=== PATIENT | male | born 1945 | race Caucasian/White ===

== ENCOUNTER 2024-04-14 13:00 | Observation (INO) ==
--- NOTE | 2024-04-14 13:38 | Emergency Department Note ---
Impression & Plan CHF (congestive heart failure), Hypertension ED Provider Note CHIEF COMPLAINT: Shortness of breath, nosebleeds HISTORY OF PRESENT ILLNESS: This 79 yo male patient with PMH of CHF presents to the emergency department with complaints of several nosebleed since this morning, high blood pressure and shortness of breath. The patient lives in [facility] and is in town visiting his son. He states over the last several weeks he has had increasing fatigue. He was switched from lasix to spironalactone several months ago. His SBP at PCP office within last 2 weeks was 134. They mention that they ate at [employer] last evening. REVIEW OF SYSTEMS: A review of systems was performed with positives and pertinent negatives listed in the history of present illness. 10 systems were reviewed and are otherwise negative. ALLERGIES: see below MEDICATIONS: see below PMH: see below SOCIAL HISTORY: see below DDx: CHF, ACS, dysrhythmia, COPD exac, HTN urgency renal failure among others. PHYSICAL EXAM: Vital signs reviewed. hypertensive. General: Chronically ill appearing 79 yo male, in no significant distress. flushed HEENT: No scleral icterus, PERRLA, neck supple. MMM. Cardiovascular: Regular rate and rhythm, no extra sounds. Pulmonary: Diminished BS but clear to auscultation bilaterally, increased WOB Abdomen: Soft, nontender, nondistended, positive bowel sounds. Musculoskeletal: Atraumatic, no peripheral edema. Neurologic: Patient awake alert and oriented x 3, speech is clear Skin: Warm, dry, no rash EMERGENCY DEPARTMENT COURSE/MDM: This patient was evaluated and appeared to be in no significant distress. IV access was obtained and laboratory work was drawn. Chest x-ray to my interpretation reveals cardiomegaly with no significant evidence of failure. EKG reveals a sinus rhythm. Patient is also noted to be hypertensive, tachycardic and requiring oxygen to maintain O2 saturations. He was given 40 mg of IV Lasix and did begin to diurese. His laboratory work reveals a BNP of 853, high-sensitivity troponin of 30. Hydralazine 10 mg IV was administered for hypertension and responded well. Case was discussed with the hospitalist service who will evaluate the patient for admission and further management. Patient and were informed of the findings and plan and agreed. MONITORING: An order for cardiac monitoring was placed and the patient is noted to be in a NSR at 65 beats per minute. RADIOLOGY: CXR to my interpretation reveals cardiomegaly, COPD changes, no failure or PNA. EKG:to my interpretation reveals a NSR at 65 bpm, normal ST segments. No PVC, no PAC, QTc 409. DISPOSITION: admission Past Med/Surg History Problem List (Updated 04/17/24 @ 05:20 by Qi Galaviz MD) CHF exacerbation Chest pain Shortness of breath Anxiety Sinus infection Epistaxis Hypertension (Acute) CHF (congestive heart failure) (Acute) Social History (Updated 04/14/24 @ 16:18 by Kelly Laguna PA-C) Smoking Status: Former smoker Age Quit Using Tobacco: 69; Hx Alcohol Use: Yes Alcohol type: beer Hx Substance Use: No Preferred Language: Kosovan Communication Ability: Effective Current Living Situation: Spouse Feels Safe at Home: Yes Assistive Devices: Glasses Allergies Allergies Allergy/AdvReac Type Severity Reaction Status Date / Time No Known Allergies Allergy Unverified 04/14/24 14:54 Home Meds Home Medications Medication Instructions Recorded Confirmed aspirin 81 mg tablet,delayed 81 mg PO DAILY 04/14/24 04/14/24 release atorvastatin 40 mg tablet 40 mg PO HS 04/14/24 04/14/24 cefuroxime axetil 500 mg tablet 500 mg PO BID 04/14/24 04/14/24 citalopram 20 mg tablet 20 mg PO DAILY 04/14/24 04/14/24 losartan 100 1 tab PO DAILY 04/14/24 04/14/24 mg-hydrochlorothiazide 25 mg tablet metoprolol succinate 50 mg 50 mg PO DAILY 04/14/24 04/14/24 tablet,extended release 24 hr prednisone 20 mg tablet See Rx Instructions .Route .COMPLEX 04/14/24 04/14/24 spironolactone 25 mg tablet 25 mg PO Q OTHER DAY 04/14/24 04/14/24 Results & Data (ED) Vital Signs Vital Signs - 24 hr 04/14/24 13:04 04/14/24 13:22 04/14/24 13:33 Temperature 36.4 C L Temperature Source Temporal Artery Scan Pulse Rate 60 68 Pulse Rate from SpO2 Sensor 67 Pulse Rhythm Respiratory Rate 22 22 Respiratory Effort / Characteristics Non-Labored Spontaneous SOB on Exertion Respiratory Depth Normal Respiratory Pattern Regular Blood Pressure 193/92 H 216/98 H Blood Pressure Mean 125 137 Pulse Oximetry 94 92 Oxygen Delivery Method Room Air Room Air Sepsis Recent Fever Within 48 Hours No Sepsis New/Unexplained Change in Mental Status No Sepsis Action Taken by Nursing No Action Required 04/14/24 13:39 04/14/24 13:39 04/14/24 13:39 Temperature Temperature Source Pulse Rate 65 Pulse Rate from SpO2 Sensor Pulse Rhythm Regular Respiratory Rate 20 Respiratory Effort / Characteristics Non-Labored Spontaneous Respiratory Depth Normal Respiratory Pattern Blood Pressure Blood Pressure Mean Pulse Oximetry 92 92 Oxygen Delivery Method Room Air Room Air Sepsis Recent Fever Within 48 Hours Sepsis New/Unexplained Change in Mental Status Sepsis Action Taken by Nursing 04/14/24 13:45 04/14/24 13:48 04/14/24 14:02 Temperature Temperature Source Pulse Rate 59 L 67 Pulse Rate from SpO2 Sensor 58 L Pulse Rhythm Respiratory Rate 24 Respiratory Effort / Characteristics Respiratory Depth Respiratory Pattern Blood Pressure 195/111 H Blood Pressure Mean 122 Pulse Oximetry 91 Oxygen Delivery Method Room Air Sepsis Recent Fever Within 48 Hours Sepsis New/Unexplained Change in Mental Status Sepsis Action Taken by [facility] Medications Current Medication List: was personally reviewed by me Laboratory Data Attestation: I reviewed the patient's lab results. 04/15/24 06:32 04/15/24 06:32 Lab Results 04/14/24 04/14/24 04/14/24 Range/Units 13:47 13:57 15:55 WBC 11.79 H (4.8-10.8) K/ul RBC 6.19 H (4.70-6.10) M/uL Hgb 18.3 H (14.0-18.0) g/dl Hct 53.2 H (42.0-52.0) % MCV 85.9 (80.0-100.0) fL MCH 29.6 (25.0-34.0) pg MCHC 34.4 (32.0-36.0) g/dL RDW Std Deviation 45.0 (36.4-46.3) fL RDW Coeff of Paco 14.4 (11.5-14.5) % Plt Count 204 (130-400) K/uL MPV 11.1 (9.4-12.4) fL Immature Gran % (Auto) 1.1 % Neut % (Auto) 84.3 % Lymph % (Auto) 5.5 % Terrell % (Auto) 6.2 % Eos % (Auto) 2.8 % Baso % (Auto) 0.1 % Neut # (Auto) 9.94 H (1.40-6.50) K/uL Lymph # (Auto) 0.65 L (1.20-3.40) K/uL Terrell # (Auto) 0.73 H (0.11-0.59) K/uL Eos # (Auto) 0.33 (0.00-0.50) K/uL Baso # (Auto) 0.01 (0.00-0.20) K/uL Immature Gran # (Auto) 0.13 (0.01-0.20) K/uL Sodium 128 L (136-145) mmol/L Potassium 4.7 (3.5-5.1) mmol/L Chloride 92 L (98-107) mmol/L Carbon Dioxide 31 (21-32) mmol/L Anion Gap 5 (3-11) BUN 39 H (6-23) mg/dl Creatinine 1.32 (0.6-1.4) mg/dl Est Cr Clr Drug Dosing 47.9 ml/min eGFR 54.19 BUN/Creatinine Ratio 29.5 H (10-20) Glucose 99 (70-99(Fasting)) mg/dl Calcium 11.0 H (8.6-10.3) mg/dl Magnesium 1.7 (1.7-2.4) mg/dl Total Bilirubin 2.5 H (0.2-1.0) mg/dl AST 35 (13-39) U/L ALT 36 (7-52) U/L Alkaline Phosphatase 52 (34-104) U/L Troponin I High Sens 30.1 H 26.0 H (0-20) pg/ml B-Natriuretic Peptide 853 H (0-100) pg/ml Total Protein 7.9 (6.0-8.3) gm/dl Albumin 4.8 (3.4-5.0) gm/dl Globulin 3.1 (2.5-4.0) gm/dl Albumin/Globulin Ratio 1.5 (0.9-2) Lipase 45 (11-82) U/L Procalcitonin 0.03 (0-0.5) ng/ml TSH 4.741 H (0.300-4.500) uIu/ml Free T4 0.99 (0.61-1.60) ng/dl Administered Medications Discontinued Medications Albuterol (Albut/Ipratrop 3mg/0.5mg Neb 3 Ml Vial) 3 ml NEB Q6R [facility]; Protocol Stop: 05/14/24 18:59 Last Admin: 04/16/24 07:02 Dose: 3 ml Documented By: Admin: 04/16/24 01:42 Dose: Not Given Documented By: Admin: 04/15/24 19:58 Dose: Not Given Documented By: Admin: 04/15/24 12:52 Dose: 3 ml Documented By: Admin: 04/15/24 07:31 Dose: 3 ml Documented By: Admin: 04/15/24 02:47 Dose: 3 ml Documented By: Admin: 04/14/24 20:15 Dose: 3 ml Documented By: MIKE Aspirin (Aspirin 81 Mg Ectab) 81 mg PO DAILY [facility] Stop: 05/15/24 08:59 Last Admin: 04/16/24 07:26 Dose: 81 mg Documented By: [facility] Admin: 04/15/24 09:23 Dose: 81 mg Documented By: JUSTIN Atorvastatin Calcium (Atorvastatin 40 Mg Tab) 40 mg PO HS [facility] Stop: 05/14/24 20:59 Last Admin: 04/15/24 20:38 Dose: 40 mg Documented By: rn mds: 04/14/24 22:55 Dose: 40 mg Documented By: [facility] Cefuroxime Axetil (Cefuroxime Axetil 500 Mg Tab) 500 mg PO BIDM [facility] Stop: 04/25/24 16:59 Last Admin: 04/16/24 07:27 Dose: 500 mg Documented By: [facility] Admin: 04/15/24 17:54 Dose: 500 mg Documented By: [facility] Citalopram Hydrobromide (Citalopram 20 Mg Tab) 20 mg PO DAILY [facility] Stop: 05/15/24 08:59 Last Admin: 04/16/24 07:26 Dose: 20 mg Documented By: [facility] Admin: 04/15/24 09:23 Dose: 20 mg Documented By: [facility] Cyanocobalamin (Cyanocobalamin (B-12) 500 Mcg Tablet) 500 mcg PO QAM [facility] Stop: 05/15/24 08:59 Last Admin: 04/16/24 07:26 Dose: 500 mcg Documented By: [facility] Admin: 04/15/24 09:23 Dose: 500 mcg Documented By: [facility] Famotidine (Famotidine 20 Mg Tab) 20 mg PO BID [facility] Stop: 05/14/24 15:14 Last Admin: 04/16/24 07:30 Dose: 20 mg Documented By: [facility] Admin: 04/15/24 20:38 Dose: 20 mg Documented By: rn mds: 04/15/24 09:23 Dose: 20 mg Documented By: [facility] Admin: 04/14/24 22:55 Dose: 20 mg Documented By: [facility] Admin: 04/14/24 15:44 Dose: 20 mg Documented By: GUSTAVO Folic Acid (Folic Acid 400 Mcg Tab) 400 mcg PO QAM BAR Stop: 05/15/24 08:59 Last Admin: 04/16/24 07:26 Dose: 400 mcg Documented By: [facility] Admin: 04/15/24 09:23 Dose: 400 mcg Documented By: [facility] Furosemide (Furosemide 40 Mg/4 Ml Vial) 40 mg IV ONE ONE Stop: 04/14/24 13:22 Last Admin: 04/14/24 13:46 Dose: 40 mg Documented By: Ivis Furosemide (Furosemide 40 Mg/4 Ml Vial) 40 mg IV ONE ONE Stop: 04/15/24 11:42 Last Admin: 04/15/24 12:35 Dose: 40 mg Documented By: [facility] Guaifenesin (Guaifenesin 600 Mg Tabcr) 600 mg PO Q12 [facility] Stop: 05/14/24 20:59 Last Admin: 04/16/24 07:26 Dose: 600 mg Documented By: [facility] Admin: 04/15/24 20:38 Dose: 600 mg Documented By: rn mds: 04/15/24 09:24 Dose: 600 mg Documented By: [facility] Admin: 04/14/24 22:55 Dose: 600 mg Documented By: [facility] HCTZ/Losartan Potassium (Losartan/Hctz 50/12.5mg Tab) 1 tab PO DAILY [facility] Stop: 05/15/24 08:59 Last Admin: 04/16/24 07:28 Dose: 1 tab Documented By: [facility] Admin: 04/15/24 09:23 Dose: 1 tab Documented By: [facility] Hydralazine HCl (Hydralazine Hcl 20 Mg/Ml Vial) 10 mg IV NOW STA Stop: 04/14/24 13:27 Last Admin: 04/14/24 13:45 Dose: 10 mg Documented By: OSMAR Lorazepam (Lorazepam 0.5 Mg Tab) 0.5 mg PO NOW STA Stop: 04/14/24 16:14 Last Admin: 04/14/24 16:42 Dose: 0.5 mg Documented By: GUSTAVO Metoprolol Succinate (Metoprolol Succ 50mg Ext Rel Tab) 50 mg PO NOW STA Stop: 04/14/24 15:14 Last Admin: 04/14/24 15:44 Dose: 50 mg Documented By: GUSTAVO Metoprolol Succinate (Metoprolol Succ 50mg Ext Rel Tab) 50 mg PO [facility] Stop: 05/15/24 08:59 Last Admin: 04/16/24 07:26 Dose: 50 mg Documented By: [facility] Admin: 04/15/24 09:24 Dose: 50 mg Documented By: [facility] Prednisone (Prednisone 20 Mg Tab) 20 mg PO DAILY [facility] Stop: 04/18/24 16:59 Last Admin: 04/16/24 07:27 Dose: 20 mg Documented By: [facility] Admin: 04/15/24 17:54 Dose: 20 mg Documented By: [facility] Spironolactone (Spironolactone 25 Mg Tab) 25 mg PO Q2D@0900 [facility] Stop: 05/15/24 08:59 Last Admin: 04/15/24 09:23 Dose: 25 mg Documented By: Adan Thiamine HCl (Thiamine Hcl 100 Mg Tab) 100 mg PO [facility] Stop: 05/15/24 08:59 Last Admin: 04/16/24 07:26 Dose: 100 mg Documented By: [facility] Admin: 04/15/24 09:23 Dose: 100 mg Documented By: [facility] Imaging Data Radiologist's Impression: Chest X-Ray 04/14/24 13:20 XR chest 1V portable CLINICAL HISTORY: Chest pain, nonspecific COMPARISON STUDY: None FINDINGS: There is mild cardiomegaly with mild pulmonary vascular congestion. No effusion, consolidation, or pneumothorax. IMPRESSION: Mild CHF. ACT 112: Negative or not required by law. Electronically signed by: Blas Abraham M.D. 04/14/2024 1:38 PM Discharge Plan Visit Data Chief Complaint: Cardiac Assessment Stated Complaint: HEART FAILURE, SOB, NOSE BLEEDS, HIGH BP ED Provider: Qi Galaviz Discharge Problem: CHF (congestive heart failure), Hypertension Patient Disposition: Admitted As Inpatient Discharge Instructions Interventions: ED Discharge Assessment Last Done: 04/14/24 19:33 Discharge Problem: CHF (congestive heart failure) Qualifiers: Heart failure type: unspecified Heart failure chronicity: acute on chronic Q ualified Code(s): I50.9 - Heart failure, unspecified Hypertension Qualifiers: Hypertension type: primary hypertension Qualified Code(s): I10 - Essential (primary) hypertension
--- NOTE | 2024-04-14 13:39 | XRay Report ---
XR chest 1V portable CLINICAL HISTORY: Chest pain, nonspecific COMPARISON STUDY: None FINDINGS: There is mild cardiomegaly with mild pulmonary vascular congestion. No effusion, consolidat ion, or pneumothorax. IMPRESSION: Mild CHF. ACT 112: Negative or not required by law. Electronically signed by: Blas Abraham M.D. 04/14/2024 1:38 PM
[2024-04-14] MEDS: hydrALAZINE HCL 20 MG/ML VIAL IV STA (13:45)
[2024-04-14] MEDS: FUROSEMIDE 40 MG/4 ML VIAL IV ONE (13:46)
[2024-04-14 14:17] LABS: Hematocrit (blood only) 53.2 % (42.0-52.0); Hemoglobin 18.3 g/dl (14.0-18.0); Mean Corpuscular Hemoglobin 29.6 pg (25.0-34.0); Mean Corpuscular Hgb Conc 34.4 g/dL (32.0-36.0); Mean Corpuscular Volume 85.9 fL (80.0-100.0); Mean Platelet Volume 11.1 fL (9.4-12.4); Platelet Count 204 K/uL (130-400); RDW Coefficient of Variation 14.4 % (11.5-14.5); Red Blood Count 6.19 M/uL (4.70-6.10)
[2024-04-14 14:26] LABS: Basophils # (auto) 0.01 K/uL (0.00-0.20); Basophils % (auto) 0.1 %; Eosinophils # (auto) 0.33 K/uL (0.00-0.50); Eosinophils % (auto) 2.8 %; Immature Granulocytes # (auto) 0.13 K/uL (0.01-0.20); Immature Granulocytes % (auto) 1.1 %; Lymphocytes # (auto) 0.65 K/uL (1.20-3.40); Lymphocytes % (auto) 5.5 %; Monocytes # (auto) 0.73 K/uL (0.11-0.59); Monocytes % (auto) 6.2 %; Neutrophils # (auto) 9.94 K/uL (1.40-6.50); Neutrophils % (auto) 84.3 %; White Blood Count 11.79 K/ul (4.8-10.8)
[2024-04-14 14:27] LABS: Albumin Globulin Ratio 1.5 (0.9-2); Albumin Level 4.8 gm/dl (3.4-5.0); BUN Creatinine Ratio 29.5 (10-20); Bilirubin,Total 2.5 mg/dl (0.2-1.0); Creatinine Clr Calc Pharmacy 47.9 ml/min; Globulin 3.1 gm/dl (2.5-4.0); Potassium 4.7 mmol/L (3.5-5.1); Total Protein 7.9 gm/dl (6.0-8.3)
[2024-04-14 14:33] LABS: Troponin I High Sensitivity 30.1 pg/ml (0-20)
--- NOTE | 2024-04-14 15:03 | History & Physical Report ---
Date of Service April 14, 2024 Assessment & Plan (1) Chest pain: (2) Shortness of breath: (3) CHF (congestive heart failure): (4) Hypertension: (5) Epistaxis: (6) Sinus infection: (7) Anxiety: Plan 79yo male presented after couple episodes of nose bleeding this morning with SOB/CP and found to have significant HTN and mild CHF changes on CXR following eating out at [employer]. No significant LE edema and reported didn't eat that much but requiring 2L NC to maintain sats and was recently on prednisone/cefuroxime for upper airway/sinus infection #Chest pain - with associated shortness of breath, significant HTN on admission and mild congestive changes on CXR suspected 2nd to CHF exacerbation possibly 2nd to HTN -s/p Hydralazine 10mg IV and Lasix 40mg IV in ER. Troponin 30.1 w/ EKG w/ SR w/ 1st degree without significant ischemic changes and currently no CP reported. Hx CAD s/p stent >10yrs ago Admit telemetry Stat dose of metoprolol PO x 1 now as misses dose this morning Trend troponin Check ECHO Check BNP Check procalcitonin -- defer ongoing abx or CT chest for now per supervising provider --> procal NOT elevated at 0.03 Check TSH w/ underlying anxiety but no hx afib Check Mag for alternative etiology Consider CTA chest but no pleuritic pain or hemopytisis but does have hx esophageal ca (reports w/o recurrance or issues swallowing) EKG w/ CP DVT proph: SCDs for now given recent epistaxis but can add in AM if continued inpatient stay but he is hopeful to return home tomorrow and is from out of town Monitor labs/exam in AM #CHF - unclear if HFpEF vs HFrEF as no prior echo for review but no significant LE edema but w/ CXE and O2 requirement w/ likely increased salt load eating out suspected mild changes on CXR, s/p lasix in ER. will resume usual HCTZ-losartan and spironolactone for the morning but metoprolol now/continue as above BNP added -- ELEVATED to 853 F/u ECHO and monitor on broke worker weights, I&O and labs in AM #SOB- suspected 2nd to CHF exacerbation but was on recent abx and steroids and could have caused leukocytosis on admission. No significant wheezing to continue steroids at this time Will check procal, abx deferred at this time Mucinex BID for mucus congestion and will order incentive spirometer. Titrate O2 as able #HTN- significant elevations suspected for cause for CP, improved and no further CP at present Continue metoprolol now, 50mg daily. continue spironolactone, losartan-HCTZ in AM based on UOP/renal function in AM Will have hydralazine available as needed for significant elevations Adjustment as needed #Elevated Ca Ca 11.0 on admission. ?2nd to HCTZ use. ALbumin is normal. Does have hx CA but no evidence for DVT and denies pleuritic pain but will monitor on AM labs w/ vitamin D check -If remains elevated will need further evaluation #Troponin elevation Troponin 30.1 on admission, suspect 2nd to demand ischemia from significant HTN and will trend, monitor on telemetry and ensure no wma on ECHO. #Hyponatremia - suspect 2nd to overload, lasix provided given elevated BNP and will check TSH but monitor BMP in AM. Consider urine studies if needed - did admit to other BILLY drinks 3 beers daily. TB elevated but LFTs wnl. Ativan 0.5mg x 1, tele monitoring and will add B12/folate/thiamine Chronic medical issues: #HLD- continue statin #Anxiety- continue citalopram, check TSH w/ hyponatremia DVT proph: SCDs for now given recent nose bleeding but can add once daily Lovenox or Heparin SQ in AM if no issues. -Pepcid BID for GI proph with recent steroids however denies any blood in stool but can monitor for issues but hgb NOT low. Dispo: admit to telemetry, tx of CHF/HTN as outlined and monitor response with regards to breathing status. Further orders/recommendations per Dr Garcia. History of Present Illness Primary Care Provider: NO PCP 79yo male with PMHx significant for CHF, CAD s/p PCI in past presented for nosebleed since this morning and HTN/SOB. Reports couple of nose bleeds couple weeks ago, nothing recent until past 24hrs but does note was on prednisone and antibiotic for sinus infection and hasn't had improvement. Was hypertensive w/ BP to 216/98 and given Hydralazine 10mg IV x 1 and Lasix 40mg IV x 1 for SOB and mild CHF on CXR. Seen in ER, at bedside. Red face, no itchiness. He reports he has NOT taken his morning medications yet but does feel better since admission. No further CP, no SOB but is on 2L NC at present. No palpitations or history of afib. No known history of DVT/PE but does have history of esophageal ca. Has some nasal/sinus congestion but persistent despite antibiotics and steroids without significant improvement. No hemoptysis reported or increased sputum production and actually reports still has mucus congestion. CXR on admission w/ mild CHF. WBC 11k on admission but do note recent steroid use. Na 128 and BUN/Cr 39/1.32. Ca 11.0 with normal albumin. No significant leg edema or O2 use. No palpitation or CP at this time but notes he did NOT take his medications this morning. Ate at [facility] last evening. Ca elevated but no LE edema or calf tenderness. Has hx anxiety, on citalopram. No palpitations but w/ Na will check TSH. No hx PE/DVT. Home med list reviewed: ASA 81mg, Lipitor 40mg HS, Citalopram 20mg, HCTZ- losartan 25-100mg daily, Metoprolol 50mg , Spironolactone 25mg q2d Recent rx Cefuroxime 500mg BID, Prednisone rx on for 20mg for 12 tablets Fluticasone nasal spray rx but has not used EKG SR 1st degree AV block. Troponin 30.1 but no CP at present. Hgb not low and actually elevated, TB 2.5. Discussed admission for BP control, diuresis and further evaluation and hopefully able to dc in AM. Allergies Allergy/AdvReac Type Severity Reaction Status Date / Time No Known Allergies Allergy Unverified 04/14/24 14:54 Home Medications Medication Instructions Recorded Confirmed Type aspirin 81 mg tablet,delayed 81 mg PO DAILY 04/14/24 04/14/24 History release atorvastatin 40 mg tablet 40 mg PO HS 04/14/24 04/14/24 History cefuroxime axetil 500 mg tablet 500 mg PO BID 04/14/24 04/14/24 History citalopram 20 mg tablet 20 mg PO DAILY 04/14/24 04/14/24 History losartan 100 1 tab PO DAILY 04/14/24 04/14/24 History mg-hydrochlorothiazide 25 mg tablet metoprolol succinate 50 mg 50 mg PO DAILY 04/14/24 04/14/24 History tablet,extended release 24 hr prednisone 20 mg tablet See Rx Instructions .Route .COMPLEX 04/14/24 04/14/24 History spironolactone 25 mg tablet 25 mg PO Q OTHER DAY 04/14/24 04/14/24 History Past Med/Surg History Problem List (Updated 04/14/24 @ 15:37 by Kelly Laguna PA-C) Chest pain Shortness of breath Anxiety Sinus infection Epistaxis Hypertension CHF (congestive heart failure) Social History (Updated 04/14/24 @ 16:18 by Kelly Laguna PA-C) Smoking Status: Former smoker Age Quit Using Tobacco: 69; Preferred Language: Croatian Feels Safe at Home: Yes Review of Systems 2 Review of Systems: All systems reviewed & are unremarkable except as noted in HPI & below Physical Exam 2 Physical Exam: General: 79yo male sitting up in bed, NAD but anxiety present HEENT: head/neck reddened appearance/no rash/itching and reports comes/goes Resp: diminished in the bases with faint exp wheezing, bibasilar crackles, on 2L NC CV: RRR, +systolic murmur, 1+ pre-tibial edema, no calf tenderness and pulses present GI: +BS, soft/NT : no gregg MSK/Neuro: nonfocal, able to answer questions appropriately, no slurred speech/facial droop Psych: Alert, oriented x 3, cooperative but anxious Results & Data Results & Data Vital Signs (Past 12 Hours) Vital Signs Temp Pulse Resp BP Pulse Ox O2 Del Method 04/14/24 14:02 67 04/14/24 13:48 59 L 24 91 Room Air 04/14/24 13:45 195/111 H 04/14/24 13:39 65 20 92 Room Air 04/14/24 13:39 92 Room Air 04/14/24 13:33 68 22 92 Room Air 04/14/24 13:22 216/98 H 04/14/24 13:04 36.4 C L 60 22 193/92 H 94 Room Air Laboratory Results 04/14/24 13:47 04/14/24 13:47 Ca 11.0 TB 2.5 but AST/ALT/ALP wnl BNP pending Procal pending TSH prning Diagnostic Findings Chest X-Ray 04/14/24 13:20 XR chest 1V portable CLINICAL HISTORY: Chest pain, nonspecific COMPARISON STUDY: None FINDINGS: There is mild cardiomegaly with mild pulmonary vascular congestion. No effusion, consolidation, or pneumothorax. IMPRESSION: Mild CHF. ACT 112: Negative or not required by law. Electronically signed by: Blas Abraham M.D. 04/14/2024 1:38 PM Supervising Physician Co-Signing Physician Notes The patient was seen by me. The chart was reviewed. Case discussed with OMER Shelton. Agree with assessment and plan PG Care Time/CCT Total # of Minutes Spent Total Time Spent with Patient: Total time spent is greater than 50% in coordination of care (as documented) at patient's floor/unit and/or counseling patient: Coding Level of Care Code 16961 INT INP/OBS CARE 3/75MIN Diagnoses Chest pain R07.9 Shortness of breath R06.02 CHF (congestive heart failure) I50.9 Hypertension I10 Epistaxis R04.0 Sinus infection J32.9 Anxiety F41.9
[2024-04-14] MEDS: METOPROLOL SUCC 50MG EXT REL TAB PO STA (15:44)
[2024-04-14] MEDS: FAMOTIDINE 20 MG TAB PO SCH (15:44)
[2024-04-14] MEDS: LORazepam 0.5 MG TAB PO STA (16:42)
[2024-04-14 16:49] LABS: Magnesium 1.7 mg/dl (1.7-2.4)
[2024-04-14 17:17] LABS: Adenovirus PCR Not Detected (NotDetected); Bordetella parapertussis PCR Not Detected (NotDetected); Bordetella pertussis PCR Not Detected (NotDetected); Chlamydia pneumoniae PCR Not Detected (NotDetected); Coronavirus 229E PCR Not Detected (NotDetected); Coronavirus CoV-2 (COVID19)PCR Not Detected (NotDetected); Coronavirus HKU1 PCR Not Detected (NotDetected); Coronavirus NL63 PCR Not Detected (NotDetected); Coronavirus OC43PCR Not Detected (NotDetected); Human Metapneumovirus PCR Not Detected (NotDetected); Influenza A PCR Not Detected (NotDetected); Influenza B PCR Not Detected (NotDetected); Mycoplasma pneumoniae PCR Not Detected (NotDetected); Parainfluenza Virus 1 PCR Not Detected (NotDetected); Parainfluenza Virus 2 PCR Not Detected (NotDetected); Parainfluenza Virus 3 PCR Not Detected (NotDetected); Parainfluenza Virus 4 PCR Not Detected (NotDetected); Respiratory Syncytial VirusPCR Not Detected (NotDetected); Rhinovirus/Enterovirus PCR Not Detected (NotDetected)
[2024-04-14 17:28] LABS: Thyroid Stimulating Hormone 4.741 uIu/ml (0.300-4.500)
[2024-04-14 18:03] LABS: T4 Free Thyroxine 0.99 ng/dl (0.61-1.60)
[2024-04-14] MEDS ORDERED: NITROGLYCERIN SL 0.4 MG/TAB TAB SL PRN (19:33)
[2024-04-14] MEDS ORDERED: ACETAMINOPHEN 325 MG TAB PO PRN (19:33)
[2024-04-14] MEDS ORDERED: hydrALAZINE HCL 20 MG/ML VIAL IV PRN (19:33)
[2024-04-14] MEDS ORDERED: ONDANSETRON INJ 2 MG/ML 2 ML VIAL IV PRN (19:33)
[2024-04-14] MEDS: ALBUT/IPRATROP 3MG/0.5MG NEB 3 ML VIAL NEB SCH (20:15)
[2024-04-14] MEDS: guaiFENesin 600 MG TABCR PO SCH (22:55)
[2024-04-14] MEDS: ATORVASTATIN 40 MG TAB PO SCH (22:55)
--- NOTE | 2024-04-15 05:58 | Electrocardiogram Report ---
Test Reason : Blood Pressure : */* mmHG Vent. Rate : 65 BPM Atrial Rate : 65 BPM P-R Int : 256 ms QRS Dur : 96 ms QT Int : 394 ms P-R-T Axes : 82 42 34 degrees QTcB Int : 409 ms Sinus rhythm with 1st degree A-V block with Fusion complexes Otherwise normal ECG No previous ECGs available Confirmed by Markell Rivera ([id number]) on 04/15/2024 5:57:57 AM Referred By: NO PCP Confirmed By: Markell Rivera
[2024-04-15 07:00] LABS: Basophils # (auto) 0.02 K/uL (0.00-0.20); Basophils % (auto) 0.2 %; Eosinophils # (auto) 0.07 K/uL (0.00-0.50); Eosinophils % (auto) 0.8 %; Hematocrit (blood only) 51.3 % (42.0-52.0); Hemoglobin 17.4 g/dl (14.0-18.0); Immature Granulocytes # (auto) 0.05 K/uL (0.01-0.20); Immature Granulocytes % (auto) 0.5 %; Lymphocytes # (auto) 1.42 K/uL (1.20-3.40); Lymphocytes % (auto) 15.3 %; Mean Corpuscular Hemoglobin 28.8 pg (25.0-34.0); Mean Corpuscular Hgb Conc 33.9 g/dL (32.0-36.0); Mean Corpuscular Volume 84.9 fL (80.0-100.0); Mean Platelet Volume 10.2 fL (9.4-12.4); Monocytes # (auto) 1.32 K/uL (0.11-0.59); Monocytes % (auto) 14.2 %; Platelet Count 165 K/uL (130-400); RDW Coefficient of Variation 14.6 % (11.5-14.5); RDW Standard Deviation 44.7 fL (36.4-46.3); Red Blood Count 6.04 M/uL (4.70-6.10); White Blood Count 9.28 K/ul (4.8-10.8)
[2024-04-15 07:26] LABS: Albumin Globulin Ratio 1.6 (0.9-2); Albumin Level 3.9 gm/dl (3.4-5.0); BUN Creatinine Ratio 25.7 (10-20); Bilirubin,Total 2.5 mg/dl (0.2-1.0); Calcium 10.3 mg/dl (8.6-10.3); Creatinine Clr Calc Pharmacy 43.9 ml/min; Globulin 2.4 gm/dl (2.5-4.0); Magnesium 1.7 mg/dl (1.7-2.4); Potassium 4.1 mmol/L (3.5-5.1); Total Protein 6.3 gm/dl (6.0-8.3)
--- NOTE | 2024-04-15 09:12 | XRay Report ---
XR chest 2V PA/lateral CLINICAL HISTORY: follow up CHF COMPARISON STUDY: 04/14/2024 FINDINGS: 2 views of the chest demonstrate chronic cardiomegaly and pulmonary vascular congestion. Th e interstitial lung markings have diminished since the prior examination consistent with improving CH F. Vague, marked reticular airspace opacity at the right lung base is persistent. His or any clinical evidence of pneumonia or aspiration? IMPRESSION: Overall improvement with diminished findings of CHF. Continued evidence of residual righ t basilar infiltrate versus chronic changes. ACT 112: Negative or not required by law. Electronically signed by: Nicky Honeycutt M.D. 04/15/2024 9:09 AM
[2024-04-15] MEDS: SPIRONOLACTONE 25 MG TAB PO SCH (09:23)
[2024-04-15] MEDS: CITALOPRAM 20 MG TAB PO SCH (09:23)
[2024-04-15] MEDS: LOSARTAN/HCTZ 50/12.5MG TAB PO SCH (09:23)
[2024-04-15] MEDS: ASPIRIN 81 MG ECTAB PO SCH (09:23)
[2024-04-15] MEDS: THIAMINE HCL 100 MG TAB PO SCH (09:23)
[2024-04-15] MEDS: CYANOCOBALAMIN (B-12) 500 MCG TABLET PO SCH (09:23)
[2024-04-15] MEDS: FOLIC ACID 400 MCG TAB PO SCH (09:23)
[2024-04-15] MEDS: METOPROLOL SUCC 50MG EXT REL TAB PO SCH (09:24)
[2024-04-15] MEDS: FUROSEMIDE 40 MG/4 ML VIAL IV ONE (12:35)
--- NOTE | 2024-04-15 16:39 | Hospitalist Progress Note ---
Date of Service April 15, 2024 Assessment & Plan (1) CHF exacerbation: (2) Shortness of breath: (3) Hypertension: (4) Anxiety: (5) Sinus infection: Plan 79yo male presented after couple episodes of epistaxis on 04/14 with associated SOB/CP. On presentation, he was found to have significant HTN and mild CHF changes on CXR following eating out at [facility]. He recently treated with / continues on prednisone and cefuroxime for URI/sinus infection. CXR on admission revealed mild pulmonary vascular congestion. BNP acutely elevated on admission at 853. #CHF Exacerbation - unclear if HFpEF vs HFrEF as no prior echo for review - Suspect caused by combination of recent steroids, dietary indiscretion, and uncontrolled hypertension - CXR 04/15 revealed overall improvement with diminished findings of CHF - BNP downtrending - Lasix 40 mg IV x 2 (1 dose on 04/14, one dose on 04/15) - Continue HCTZ-losartan, metoprolol, spironolactone - Echocardiogram completed, report pending #Shortness of breath / Chest pain - Significant elevations suspected for cause for CP, improved and no further CP at present - Troponin peaked at 39.0 then down trended. Suspect demand ischemia secondary to heart failure exacerbation - EKG w/ SR w/ 1st degree without significant ischemic changes. Telemetry with NSR 50-70s with 1st degree block - TSH slightly elevated at 4.741 but Free T4 WNL. Mag and procal WNL - Ongoing hypoxia on room air > 2-Step completed and patient requires 1 L O2 at rest and 3 L O2 with ambulation - Continue [facility] spirometry #Sinus Infection - Diagnosed and started on treatment outpatient - Continue cefuroxime BID through 04/19 - Continue prednisone 20 mg daily x 3 more days to complete taper - Mucinex BID for congestion #HTN - Significant hypertension as high as 200/114 on admission, now much better controlled with most recent BP of 134/72 - Continue HCTZ-losartan, metoprolol, spironolactone - Hydralazine IV available as needed for significant elevations #Hyponatremia - Suspect 2nd to volume overload - Improving with diuresis Chronic medical issues: #HLD- continue statin #Anxiety- continue citalopram DVT proph: SCDs and ambulation for now given recent epistaxis Dispo: Anticipate discharge 04/16 when echocardiogram report is posted and home O2 can be coordinated Updated via phone call Discussed recommendations with respiratory therapy Discussed discharge planning with case management Admission and Anticipated Discharge Date Admission Date: April 14, 2024 Subjective Patient seen and evaluated at bedside. He reports his shortness of breath is improved today, denies any chest pain. He states that he feels well and wants to be discharged home. He states he used to follow with a position classification manager in the past, but he has not seen one since his position classification manager retired. We discussed that we are waiting for his echocardiogram results and will try weaning off supplemental O2. Returned to bedside in afternoon. We discussed the recommendation from RT to wear 1L O2 at rest and 3L O2 with ambulation, and that case management is coordinating home oxygen with his as they are from out of town. Still waiting for echocardiogram results. Patient agitated and frustrated over this. Encouraged patient to remain patient and he could likely be discharged tomorrow morning when his home oxygen is coordinated. Patient stated he will wait a little longer but does not want to stay overnight. Further encouragement on staying provided. No additional complaints or concerns at this time. Physical Exam Physical Exam: General: No acute distress, nondiaphoretic, well-developed, well-nourished. Frustrated regarding continued inpatient stay. Cardiac: Regular rate and rhythm without gallops or rubs. Systolic murmur noted. Telemetry with NSR in 80s. Pulm: Diminished in bases bilaterally, otherwise clear to auscultation bi laterally without wheezes, rales or rhonchi. Normal respiratory effort. 95% on 2L NC. Abdominal: Soft, nontender, nondistended. Bowel sounds present. Neuro: A&O x3. No focal neurological deficits. Results & Data Results & Data Vital Signs (Past 12 Hours) Vital Signs Temp Pulse Pulse Pulse Pulse Pulse Pulse 04/15/24 15:34 78 80 73 69 04/15/24 15:20 97.7 F 65 04/15/24 15:13 86 04/15/24 12:52 75 04/15/24 11:22 97.3 F L 86 04/15/24 10:42 04/15/24 08:06 97.7 F 56 L 04/15/24 07:31 74 04/15/24 07:17 55 L Pulse Resp Resp Resp Resp Resp Resp 04/15/24 15:34 68 18 18 18 16 16 04/15/24 15:20 20 04/15/24 15:13 04/15/24 12:52 18 04/15/24 11:22 20 04/15/24 10:42 04/15/24 08:06 18 04/15/24 07:31 20 04/15/24 07:17 BP Pulse Ox Pulse Ox Pulse Ox Pulse Ox Pulse Ox Pulse Ox 04/15/24 15:34 85 L 87 L 91 90 87 L 04/15/24 15:20 134/72 91 04/15/24 15:13 04/15/24 12:52 95 04/15/24 11:22 179/97 H 95 04/15/24 10:42 04/15/24 08:06 174/83 H 95 04/15/24 07:31 88 L 04/15/24 07:17 O2 Del Method O2 Flow Rate O2 Flow Rate O2 Flow Rate O2 Flow Rate O2 Flow Rate 04/15/24 15:34 1 2 3 1 04/15/24 15:20 Nasal Cannula 04/15/24 15:13 04/15/24 12:52 Nasal Cannula 2 04/15/24 11:22 Nasal Cannula 04/15/24 10:42 Nasal Cannula 2 04/15/24 08:06 Nasal Cannula 04/15/24 07:31 Room Air 04/15/24 07:17 Laboratory Results Reviewed CBC with differential Reviewed CMP/chemistries Diagnostic Findings Reviewed CXR Chest X-Ray 04/15/24 09:00 XR chest 2V PA/lateral CLINICAL HISTORY: follow up CHF COMPARISON STUDY: 04/14/2024 FINDINGS: 2 views of the chest demonstrate chronic cardiomegaly and pulmonary vascular congestion. The interstitial lung markings have diminished since the prior examination consistent with improving CHF. Vague, marked reticular airspace opacity at the right lung base is persistent. His or any clinical evidence of pneumonia or aspiration? IMPRESSION: Overall improvement with diminished findings of CHF. Continued evidence of residual right basilar infiltrate versus chronic changes. ACT 112: Negative or not required by law. Electronically signed by: Nicky Honeycutt M.D. 04/15/2024 9:09 AM PG Care Time/CCT Total # of Minutes Spent Total Time Spent with Patient: Total time spent is greater than 50% in coordination of care (as documented) at patient's floor/unit and/or counseling patient: Coding Level of Care Code 55553 SUB INP/OBS CARE 350MIN Diagnoses CHF exacerbation I50.9 Shortness of breath R06.02 Hypertension I10 Anxiety F41.9 Sinus infection J32.9
[2024-04-15] MEDS: predniSONE 20 MG TAB PO SCH (17:54)
[2024-04-15] MEDS: cefUROXime axetil 500 MG TAB PO SCH (17:54)
--- NOTE | 2024-04-15 21:28 | XCELERA ---
[id number]
--- NOTE | 2024-04-16 05:41 | Electrocardiogram Report ---
Test Reason : Blood Pressure : */* mmHG Vent. Rate : 60 BPM Atrial Rate : 60 BPM P-R Int : 264 ms QRS Dur : 92 ms QT Int : 432 ms P-R-T Axes : 106 41 43 degrees QTcB Int : 432 ms Sinus rhythm with 1st degree A-V block with Premature supraventricular complexes Otherwise normal ECG When compared with ECG of 14-Apr-2024 13:37, Fusion complexes are no longer Present Premature supraventricular complexes are now Present Confirmed by Markell Rivera ([id number]) on 04/16/2024 5:40:38 AM Referred By: NO PCP Confirmed By: Markell Rivera
[2024-04-16 07:05] VITALS: O2SAT 95
[2024-04-16 07:44] VITALS: PULSE 70; RESP 20; TEMP 97.5
[2024-04-16 10:07] VITALS: BP 160/76
--- NOTE | 2024-04-16 13:58 | Discharge Summary ---
Discharge Summary Date of Service April 16, 2024 Principal Dx & Hospital Course #1 = Principal Diagnosis (1) CHF exacerbation: (2) Shortness of breath: (3) Hypertension: (4) Anxiety: (5) Sinus infection: Plan 79yo male presented after couple episodes of epistaxis on 04/14 with associated SOB/CP. On presentation, he was found to have significant HTN and mild CHF changes on CXR following eating out at [employer]. He recently treated with / continues on prednisone and cefuroxime for URI/sinus infection. CXR on admission revealed mild pulmonary vascular congestion. BNP acutely elevated on admission at 853, then down trended. He received 2 doses of IV Lasix. Patient is from out of town and plans to follow-up with his PCP within the week at home. #CHF Exacerbation - Suspect caused by combination of recent steroids, dietary indiscretion, and uncontrolled hypertension - CXR 04/15 revealed overall improvement with diminished findings of CHF - Lasix 40 mg IV x 2 (1 dose on 04/14, one dose on 04/15) - Continue HCTZ-losartan, metoprolol, spironolactone - Echocardiogram with EF55-60%, no regional wall motion abnormalities. Does note severe pulmonary hypertension with estimated RVSP 70 mmHg > Recommend outpatient sleep study to evaluate for underlying sleep apnea #Shortness of breath / Chest pain - Significant elevations suspected for cause for CP, improved and no further CP at present - Troponin peaked at 39.0 then down trended. Suspect demand ischemia secondary to heart failure exacerbation - EKG w/ SR w/ 1st degree without significant ischemic changes. Telemetry with NSR 50-70s with 1st degree block - TSH slightly elevated at 4.741 but Free T4 WNL. Mag and procal WNL - Ongoing hypoxia on room air > 2-Step completed and patient requires 1 L O2 at rest and 3 L O2 with ambulation #Sinus Infection - Diagnosed and started on treatment outpatient - Continue cefuroxime BID through 04/19 - Continue prednisone 20 mg daily through 04/18 to complete taper #HTN - Significant hypertension as high as 200/114 on admission, now much better controlled - Continue HCTZ-losartan, metoprolol, spironolactone #Hyponatremia - Suspect 2nd to volume overload - Improved with diuresis Chronic medical issues: #HLD- continue statin #Anxiety- continue citalopram DVT proph: SCDs and ambulation Dispo: Discharged home 04/16. Recommended to follow-up with PCP within 1 week, outpatient sleep study, and possibly cardiology or pulmonology referral for severe pulmonary hypertension Notes For Next Care Provider Recommend outpatient sleep study Requires continuous supplemental oxygen: 1 L with rest, 3 L with ambulation Admission HPI Per Admitting Provider 79yo male with PMHx significant for CHF, CAD s/p PCI in past presented for nosebleed since this morning and HTN/SOB. Reports couple of nose bleeds couple weeks ago, nothing recent until past 24hrs but does note was on prednisone and antibiotic for sinus infection and hasn't had improvement. Was hypertensive w/ BP to 216/98 and given Hydralazine 10mg IV x 1 and Lasix 40mg IV x 1 for SOB and mild CHF on CXR. Seen in ER, at bedside. Red face, no itchiness. He reports he has NOT taken his morning medications yet but does feel better since admission. No further CP, no SOB but is on 2L NC at present. No palpitations or history of afib. No known history of DVT/PE but does have history of esophageal ca. Has some nasal/sinus congestion but persistent despite antibiotics and steroids without significant improvement. No hemoptysis reported or increased sputum production and actually reports still has mucus congestion. CXR on admission w/ mild CHF. WBC 11k on admission but do note recent steroid use. Na 128 and BUN/Cr 39/1.32. Ca 11.0 with normal albumin. No significant leg edema or O2 use. No palpitation or CP at this time but notes he did NOT take his medications this morning. Ate at [facility] last evening. Ca elevated but no LE edema or calf tenderness. Has hx anxiety, on citalopram. No palpitations but w/ Na will check TSH. No hx PE/DVT. Home med list reviewed: ASA 81mg, Lipitor 40mg HS, Citalopram 20mg, HCTZ- losartan 25-100mg daily, Metoprolol 50mg , Spironolactone 25mg q2d Recent rx Cefuroxime 500mg BID, Prednisone rx on for 20mg for 12 tablets Fluticasone nasal spray rx but has not used EKG SR 1st degree AV block. Troponin 30.1 but no CP at present. Hgb not low and actually elevated, TB 2.5. Discussed admission for BP control, diuresis and further evaluation and hopefu lly able to dc in AM. Discharge Exam General: No acute distress, nondiaphoretic, well-developed, well-nourished. Cardiac: Regular rate and rhythm without gallops or rubs. Systolic murmur noted. Telemetry with NSR in 70s. Pulm: Diminished in bases bilaterally, otherwise clear to auscultation bilaterally without wheezes, rales or rhonchi. Normal respiratory effort. 95% on 1L NC. Abdominal: Soft, nontender, nondistended. Bowel sounds present. Neuro: A&O x3. No focal neurological deficits. Discharge Plan Discharge Items Patient Disposition: Home - Self-Care Reason For Visit: CHEST PAIN, SOB Discharge Diagnosis: Heart failure exacerbation Activity: Resume your previous activity Non-emergency contact: Primary Care Provider Call non-emergency contact if: you have any medication questions and your symptoms worsen Follow-up/Referrals: PCP,NO [Primary Care Provider] - (Follow-up with your PCP in 1-2 weeks) Diet: Heart Healthy Addtl Attending Provider Instructions: Mr. Berman, Juancarlos were admitted to the hospital with a heart failure exacerbation. This was likely multifactorial between recent prednisone for your sinus infection, uncontrolled hypertension, and dietary indiscretion. You were treated with IV diuretics and have improved. You were evaluated by the respiratory therapy team, who found you need to wear 1 L of oxygen at rest and 3 L of oxygen with activity. Your echocardiogram (ultrasound of your heart), showed a normal ejection fracture, but severe pulmonary hypertension. This is likely from underlying / undiagnosed sleep apnea. I recommend you complete a sleep study outpatient through your PCP. Upon discharge from the hospital: * Continue your home medications as prescribed. * Follow-up with your PCP in 1-2 weeks. * Follow a low-sodium, heart healthy diet. * Continue to wear your oxygen: 1 L at rest, 3 L with activity. It was a pleasure taking care of you while you were in the hospital! Call your Primary Care doctor if any of the following symptoms or problems start or get worse: * Shortness of breath or difficulty breathing * Wake up at night short of breath * Chest pain * Cough * Swelling of your hands, feet, or legs * More fatigued or tired with your normal activity * Palpitations - sudden fast heart beats WEIGHT * Weigh yourself every morning after using the bathroom. * Use the same scale. * Wear the same amount of clothing. * Write your weight down on a chart. * Call your Primary Care doctor if you gain more than 2-3 pounds in 1-2 days. MEDICATIONS * Use this discharge instruction sheet for medication instructions. * Take your medications at the time your doctor ordered. * Do not skip a dose of your medicines. * If you miss a dose of medicine, take it as soon as possible, but DO NOT DOUBLE A DOSE. * Read your medicine information when you get home. * Know all of the side effects of your medicine. If in doubt, ask your pharmacist * Call your Primary Care doctor's office if you have any side effects. * Be sure all of your doctors know what medicine and herbs you take (including cold, flu, and herbal medicine). Take the following with you to your follow-up doctor appointments: * Weight Chart * Medication List * List of questions Do not drink excessive alcohol, beer or wine. Pending Studies at Discharge: No Stand-Alone Forms: My [facility] [employer], Smoking Cessation Medications and DC Order Prescriptions: Continued atorvastatin 40 mg tablet 40 mg PO HS metoprolol succinate 50 mg tablet extended release 24 hr 50 mg PO DAILY prednisone 20 mg tablet See Rx Instructions .ROUTE .COMPLEX Rx Instructions: Start Date 04/09/24 x9 day supply. Take 60mg by mouth daily x 3 days; 40mg x 3 days then 20mg x 3 days and stop aspirin 81 mg Tablet,Delayed Release (Dr/Ec) 81 mg PO DAILY spironolactone 25 mg tablet 25 mg PO Q OTHER DAY losartan-hydrochlorothiazide 100-25 mg tablet 1 tab PO DAILY citalopram 20 mg tablet 20 mg PO DAILY cefuroxime axetil 500 mg tablet 500 mg PO BID Rx Instructions: Start Date 04/09/24 x10 day supply Discharge Orders: Discharge Order (Routine); Ordered 04/16/24 Ordered By: Alexandra Pace Admission Data Admit Date/Time: 04/14/24 15:56 Attending Provider: Dominik Lundberg Admit Provider: Vinod Garcia Primary Care Provider: PCP,NO Other Providers: Vinod Garcia Other Interventions: Discharge Summary Assessment (RN) Last Done: 04/16/24 10:06 Hospital Stay Data Consultations 04/14/24 14:52 ED Decision to Admit Stat 04/16/24 09:43 Burn CD for patient Routine Pending Results Patient Have Any Pending Studies at Discharge: No Discharge Instructions Given to Patient (Per Discharging Provider) Mr. Berman, Juancarlos were admitted to the hospital with a heart failure exacerbation. This was likely multifactorial between recent prednisone for your sinus infection, uncontrolled hypertension, and dietary indiscretion. You were treated with IV diuretics and have improved. You were evaluated by the respiratory therapy t eam, who found you need to wear 1 L of oxygen at rest and 3 L of oxygen with activity. Your echocardiogram (ultrasound of your heart), showed a normal ejection fracture, but severe pulmonary hypertension. This is likely from underlying / undiagnosed sleep apnea. I recommend you complete a sleep study outpatient through your PCP. Upon discharge from the hospital: * Continue your home medications as prescribed. * Follow-up with your PCP in 1-2 weeks. * Follow a low-sodium, heart healthy diet. * Continue to wear your oxygen: 1 L at rest, 3 L with activity. It was a pleasure taking care of you while you were in the hospital! Call your Primary Care doctor if any of the following symptoms or problems start or get worse: * Shortness of breath or difficulty breathing * Wake up at night short of breath * Chest pain * Cough * Swelling of your hands, feet, or legs * More fatigued or tired with your normal activity * Palpitations - sudden fast heart beats WEIGHT * Weigh yourself every morning after using the bathroom. * Use the same scale. * Wear the same amount of clothing. * Write your weight down on a chart. * Call your Primary Care doctor if you gain more than 2-3 pounds in 1-2 days. MEDICATIONS * Use this discharge instruction sheet for medication instructions. * Take your medications at the time your doctor ordered. * Do not skip a dose of your medicines. * If you miss a dose of medicine, take it as soon as possible, but DO NOT DOUBLE A DOSE. * Read your medicine information when you get home. * Know all of the side effects of your medicine. If in doubt, ask your pharmacist * Call your Primary Care doctor's office if you have any side effects. * Be sure all of your doctors know what medicine and herbs you take (including cold, flu, and herbal medicine). Take the following with you to your follow-up doctor appointments: * Weight Chart * Medication List * List of questions Do not drink excessive alcohol, beer or wine. Supervising Physician Co-Signing Physician Notes chart reviewed and case d/w S Katelynn MATHEW attempted to see pt prior to him leaving but he was apparently quite anxious to leave and left prior to my being able to personally see him. as above Total Time Total Time Spent Total Time Spent (In Minutes): Greater than 30 minutes spent completing this discharge process including direct patient care, medication reconciliation, documentation, review of labs and images, and coordination of care. Coding Level of Care Code 98328 INP/OBS DISCH >30 MIN Diagnoses CHF exacerbation I50.9 Shortness of breath R06.02 Hypertension I10 Anxiety F41.9 Sinus infection J32.9
== END 2024-04-16 11:11 | disposition home or self-care (01) ==
LOC: SUATTDRO → ED 13:00 → EDINP 13:00 → SUATTDRO 15:56 → 2N 19:33